=== PATIENT | female | born 1990 | race African-American/Black ===

== ENCOUNTER 2021-07-30 10:19 | Emergency (ER) | payer SELFPAY ==
[~2021-07-30] VITALS: Ht 167.6 cm; Wt 52.2 kg
[2021-07-30 10:31] VITALS: BP 129/81
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
[2021-07-30] MEDS ORDERED: LIDOCAINE/EPI 1% 1:100000 20 ML VIAL INJ ONE ×2 (10:57→11:00)
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
[2021-07-30] MEDS ORDERED: BACI1PAC6 TP (11:22)
[2021-07-30] MEDS ORDERED: BACITRACIN OINT 500 UNITS/GM PKT TP ONE (11:28)
--- NOTE | 2021-07-30 11:30 | NUR ---
CHARLES AT BEDSIDE TO REPAIR LACERATION
[2021-07-30 12:02] VITALS: BP 122/75
--- NOTE | 2021-07-30 12:02 | NUR ---
Patient discharged with v/s stable. Written and verbal after care instructions given and explained. Patient alert, oriented and verbalized understanding of instructions. Ambulatory with steady gait. All questions addressed prior to discharge. ID band removed. Patient advised to follow up with PMD. Rx of BACITRACIN OINT given. Patient educated on indication of medication including possible reaction and side effects. Opportunity to ask questions provided and answered.
--- NOTE | 2021-07-30 12:38 | NUR ---
Note trina in EDM - 07/30/21 at 1243 by [facility] Patient discharged with v/s stable. Written and verbal after care instructions given and explained with teachback. Patient alert, oriented and verbalized understanding of instructions. Ambulatory with steady gait. All questions addressed prior to discharge. ID band removed. Patient advised to follow up with PMD. Rx of LIDODERM 5% PATCH/IBUPROFEN/HYDROCODONE/ACETAMINOPHEN given. Patient educated on indication of medication including possible reaction and side effects. Opportunity to ask questions provided and answered.
== END 2021-07-30 12:02 | disposition home or self-care (01) ==
LOC: MED 10:19
DX: S01.112A Laceration without foreign body of left eyelid and periocular area, initial encounter (principal); Z79.899 Other long term (current) drug therapy; Y04.0XXA Assault by unarmed brawl or fight, initial encounter; Y93.89 Activity, other specified; Y92.89 Other specified places as the place of occurrence of the external cause; Y99.8 Other external cause status
CPT/HCPCS: 12013; 99282; J2001

== ENCOUNTER 2021-08-09 16:45 | Emergency (ER) | payer SELFPAY ==
[~2021-08-09] VITALS: Ht 167.6 cm; Wt 52.2 kg
[~2021-08-09 16:45] MED LIST: BACI1PAC6 TP
[2021-08-09 16:57] VITALS: BP 121/84
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
--- NOTE | 2021-08-09 17:49 | NUR ---
Patient discharged with v/s stable. Written and verbal after care instructions ABOUT SUTURE REMOVAL given and explained. Patient verbalized understanding. Ambulatory with steady gait. All questions addressed prior to discharge. Advised to follow up with PMD.
== END 2021-08-09 17:50 | disposition home or self-care (01) ==
LOC: MED 16:45
DX: S01.81XD Laceration without foreign body of other part of head, subsequent encounter (principal); Z48.02 Encounter for removal of sutures; Z79.2 Long term (current) use of antibiotics; X58.XXXD Exposure to other specified factors, subsequent encounter
CPT/HCPCS: 99281